=== PATIENT | female | born 1955 | race Caucasian/White ===

== ENCOUNTER → 2018-08-22 | Outpatient (CLI) | payer OTHER | LOC: RAD 12:02 | DX: M25.511 Pain in right shoulder (principal) ==

== ENCOUNTER 2018-11-19 11:30 | Outpatient (RCR) | payer OTHER | END 2018-11-19 12:00 | LOC: PT 11:30 | DX: M25.511 Pain in right shoulder (principal); M62.838 Other muscle spasm ==

== ENCOUNTER → 2020-04-27 | Outpatient (CLI) | payer OTHER | LOC: RAD 11:38 | DX: Z13.820 Encounter for screening for osteoporosis (principal); M81.0 Age-related osteoporosis without current pathological fracture ==

== ENCOUNTER → 2022-01-04 | Outpatient (CLI) | payer MEDICARE | LOC: RAD 14:22 | DX: M25.562 Pain in left knee (principal) ==

== ENCOUNTER → 2022-01-23 | Outpatient (RCR) | payer MEDICARE | LOC: PT | DX: S83.92XA Sprain of unspecified site of left knee, initial encounter (principal); X58.XXXA Exposure to other specified factors, initial encounter ==

== ENCOUNTER 2022-01-25 13:59 | Outpatient (RCR) | payer MEDICARE | END 2022-02-22 | disposition home or self-care (01) | LOC: PT | DX: S83.92XD Sprain of unspecified site of left knee, subsequent encounter (principal); M54.12 Radiculopathy, cervical region; X58.XXXD Exposure to other specified factors, subsequent encounter ==

== ENCOUNTER 2022-02-28 08:51 | Outpatient (RCR) | payer MEDICARE | END 2022-03-22 12:57 | LOC: PT 08:51 | DX: M54.12 Radiculopathy, cervical region (principal) ==

== ENCOUNTER → 2022-04-23 | Outpatient (CLI) | payer MEDICARE | LOC: RAD 08:00 | DX: M47.816 Spondylosis without myelopathy or radiculopathy, lumbar region (principal); M51.36 Other intervertebral disc degeneration, lumbar region ==

== ENCOUNTER 2022-05-01 08:00 | Outpatient (RCR) | payer MEDICARE | END 2022-05-25 | disposition home or self-care (01) | LOC: PT | DX: M54.50 Low back pain, unspecified (principal) ==

== ENCOUNTER 2022-05-28 08:00 | Outpatient (RCR) | payer MEDICARE | END 2022-06-22 09:21 | disposition home or self-care (01) | LOC: PT 08:00 | DX: M54.50 Low back pain, unspecified (principal) ==

== ENCOUNTER → 2022-08-01 | Outpatient (CLI) | payer MEDICARE | LOC: RAD 08:10 | DX: M17.0 Bilateral primary osteoarthritis of knee (principal); S83.012A Lateral subluxation of left patella, initial encounter; S83.011A Lateral subluxation of right patella, initial encounter; X58.XXXA Exposure to other specified factors, initial encounter ==

== ENCOUNTER → 2023-05-03 | Outpatient (CLI) | payer MEDICARE ==
[2023-05-03 16:18] LABS: CLUE CELLS NOT OBSERVED (Not Observd)
== END ==
LOC: LAB 15:15
PROVIDERS: Family Medicine
DX: N39.0 Urinary tract infection, site not specified (principal); N89.8 Other specified noninflammatory disorders of vagina
CPT/HCPCS: Q0111

== ENCOUNTER → 2024-05-25 | Day surgery (SDC) | payer MEDICARE | END | disposition home or self-care (01) | LOC: MSO 08:40 | DX: Z12.11 Encounter for screening for malignant neoplasm of colon (principal); K63.5 Polyp of colon; K57.30 Diverticulosis of large intestine without perforation or abscess without bleeding | CPT/HCPCS: 00812; J2704; J7120 ==